=== PATIENT | male | born 1980 | race Caucasian/White ===

== ENCOUNTER 2023-04-04 08:04 | Emergency (ER) | payer MEDICAID ==
[~2023-04-04] VITALS: Ht 180.3 cm; Wt 115.2 kg
[2023-04-04 08:12] VITALS: BP 129/68; PULSE 100; RESP 18; TEMP 97.5; O2SAT 100
[2023-04-04] MEDS ORDERED: NACL 0.9% 1,000 ML IV ONE (08:40)
[2023-04-04] MEDS ORDERED: KETOROLAC 15 MG/ML VIAL IVP ONE (08:40)
[2023-04-04] MEDS ORDERED: ONDANSETRON 4 MG/2 ML VIAL IVP ONE (08:40)
[2023-04-04 08:54] LABS: BASOPHILS % (AUTO) 0.5 % (0.0-2.0); EOSINOPHILS % (AUTO) 0.1 % (0.0-4.0); HEMATOCRIT 47.7 % (36-52); HEMOGLOBIN 16.3 g/dL (12.0-18.0); LYMPHOCYTES # (AUTO) 0.9 K/uL (2.0-11.5); LYMPHOCYTES % (AUTO) 23.4 % (20.5-51.1); MEAN CORPUSCULAR HEMOGLOBIN 27 pg (27-31); MEAN CORPUSCULAR HGB CONC 34 g/dL (33-37); MEAN CORPUSCULAR VOLUME 80.1 fL (80-94); MONOCYTES # (AUTO) 0.6 K/uL (0.8-1.0); MONOCYTES % (AUTO) 14.6 % (1.7-9.3); NEUTROPHILS # (AUTO) 2.5 K/uL (1.8-7.7); NEUTROPHILS % (AUTO) 61.4 % (42.2-75.2); PLATELET COUNT (AUTO) 108 K/uL (140-450); RED BLOOD CELL COUNT(AUTO) 5.96 MIL/uL (4.20-6.10); RED CELL DISTRIBUTION WIDTH 13.5 % (11.6-13.7)
[2023-04-04] MEDS ORDERED: KETOROLAC 30 MG/ML VIAL ONE (08:56)
[2023-04-04 09:07] LABS: ALBUMIN 3.4 g/dL (3.4-5.0); ANION GAP 13.6 (8-16); CALCIUM 8.6 mg/dL (8.5-10.1); CARBON DIOXIDE 27.2 mmol/L (21-32); CREATININE 1.2 mg/dL (0.6-1.3); POTASSIUM 3.8 mmol/L (3.5-5.1); TOTAL BILIRUBIN 0.8 mg/dL (0.0-1.0); TOTAL PROTEIN, SERUM 7.8 g/dL (6.4-8.2)
[2023-04-04] MEDS ORDERED: IBUP-2213 PO (09:43)
[2023-04-04] MEDS ORDERED: ONDA-188 PO (09:43)
[2023-04-04] MEDS ORDERED: LOPE-289 PO (09:43)
== END 2023-04-04 10:02 | disposition home or self-care (01) ==
LOC: MED 08:04
DX: U07.1 COVID-19 (principal); R11.2 Nausea with vomiting, unspecified; R19.7 Diarrhea, unspecified; Z79.899 Other long term (current) drug therapy
CPT/HCPCS: 36415; 80053; 83690; 85025; 96361; 96374; 96375; 99284; J1885; J2405; J7030

== ENCOUNTER 2023-04-06 03:30 | Emergency (ER) | payer MEDICAID ==
[~2023-04-06] VITALS: Ht 180.3 cm; Wt 113.4 kg
[~2023-04-06 03:30] MED LIST: IBUP-2213 PO; LOPE-289 PO; ONDA-188 PO
[2023-04-06 03:46] VITALS: BP 124/84; PULSE 105; RESP 20; TEMP 98.2; O2SAT 93
[2023-04-06] MEDS ORDERED: KETOROLAC 30 MG/ML VIAL IM ONE (04:00)
[2023-04-06] MEDS ORDERED: ACETAMIN/CODEINE 120/12MG-5ML 5 ML UDC PO ONE (04:00)
[2023-04-06] MEDS ORDERED: ONDANSETRON 4 MG ODT PO ONE (04:10)
[2023-04-06 04:47] VITALS: O2SAT 96
[2023-04-06 05:00] LABS: APPEARANCE,URINE CLEAR (CLEAR); BILIRUBIN,URINE NEGATIVE (NEGATIVE); BLOOD, URINE 2+ (NEGATIVE); COLOR,URINE YELLOW (YELLOW); LEUKOCYTE ESTERASE ,URINE NEGATIVE (NEGATIVE); NITRITE, URINE NEGATIVE (NEGATIVE); PROTEIN,URINE 1+ (NEGATIVE); UGLUCOSE TRACE (NEGATIVE)
[2023-04-06 05:04] LABS: FLU A ANTIGEN negative (NEGATIVE); FLU B ANTIGEN NEGATIVE (NEGATIVE)
[2023-04-06 05:06] LABS: BACTERIA,URINE 10-30 (MOD) /HPF (None Seen); MUCUS,URINE 1+ /LPF (None Seen); SQUAMOUS EPITHELIAL CELL,UR 0-3 (FEW) /LPF (0-3 (FEW)); WBC,URINE 0-5 /HPF (0-5)
[2023-04-06 05:11] LABS: ANION GAP 11.6 (8-16); CALCIUM 8.4 mg/dL (8.5-10.1); CARBON DIOXIDE 27.7 mmol/L (21-32); CREATININE 1.1 mg/dL (0.6-1.3); POTASSIUM 3.3 mmol/L (3.5-5.1); TOTAL BILIRUBIN 0.9 mg/dL (0.0-1.0); TOTAL PROTEIN, SERUM 7.2 g/dL (6.4-8.2)
[2023-04-06] MEDS ORDERED: CEPH-588 PO (05:16)
[2023-04-06] MEDS ORDERED: NAPR-54 PO (05:16)
[2023-04-06] MEDS ORDERED: ACET-8905 PO (05:16)
[2023-04-06 05:20] LABS: BASOPHILS % (AUTO) 0.2 % (0.0-2.0); EOSINOPHILS % (AUTO) 0.2 % (0.0-4.0); HEMATOCRIT 43.9 % (36-52); HEMOGLOBIN 15.2 g/dL (12.0-18.0); LYMPHOCYTES # (AUTO) 1.2 K/uL (2.0-11.5); LYMPHOCYTES % (AUTO) 20.8 % (20.5-51.1); MEAN CORPUSCULAR HEMOGLOBIN 28 pg (27-31); MEAN CORPUSCULAR HGB CONC 35 g/dL (33-37); MEAN CORPUSCULAR VOLUME 79.7 fL (80-94); MONOCYTES # (AUTO) 0.5 K/uL (0.8-1.0); MONOCYTES % (AUTO) 9.6 % (1.7-9.3); NEUTROPHILS # (AUTO) 3.9 K/uL (1.8-7.7); NEUTROPHILS % (AUTO) 69.2 % (42.2-75.2); PLATELET COUNT (AUTO) 104 K/uL (140-450); RED BLOOD CELL COUNT(AUTO) 5.51 MIL/uL (4.20-6.10); RED CELL DISTRIBUTION WIDTH 13.1 % (11.6-13.7); WHITE BLOOD COUNT (AUTO) 5.6 K/uL (4.8-10.8)
[2023-04-06] MEDS ORDERED: NITR100C7 PO (05:39)
[2023-04-06] MEDS ORDERED: LEVOFLOXACIN 500 MG/D5W PREMIX 100 ML IV ONE (05:40)
[2023-04-06] MEDS ORDERED: NACL 0.9% 1,000 ML IV ONE (05:40)
[2023-04-06 07:22] VITALS: BP 120/79; PULSE 84; RESP 12; O2SAT 96
[2023-04-06] MEDS ORDERED: OMEP40EC23 PO (20:09)
[2023-04-06] MEDS ORDERED: METO-485 PO (20:09)
[2023-04-06] MEDS ORDERED: BENZ200C4 PO (20:32)
== END 2023-04-06 07:22 | disposition home or self-care (01) ==
LOC: MED 03:30
DX: N39.0 Urinary tract infection, site not specified (principal); Z20.822 Contact with and (suspected) exposure to COVID-19; R53.1 Weakness; Z79.899 Other long term (current) drug therapy
CPT/HCPCS: 36415; 71045; 80053; 81001; 85025; 87426; 87804; 96365; 96372; 99284; J1885; J1956; Q0092; Q0162

== ENCOUNTER 2023-04-06 14:17 | Emergency (ER) | payer MEDICAID ==
[~2023-04-06] VITALS: Ht 180.3 cm; Wt 115.7 kg
[~2023-04-06 14:17] MED LIST changes: +ACET-8905 PO; +CEPH-588 PO; +NAPR-54 PO; +NITR100C7 PO
[2023-04-06 14:51] VITALS: BP 112/88; PULSE 109; RESP 20; TEMP 97.7; O2SAT 100
[2023-04-06 16:35] LABS: BASOPHILS % (AUTO) 0.1 % (0.0-2.0); EOSINOPHILS % (AUTO) 0.2 % (0.0-4.0); HEMATOCRIT 45.6 % (36-52); HEMOGLOBIN 15.2 g/dL (12.0-18.0); LYMPHOCYTES # (AUTO) 0.9 K/uL (2.0-11.5); LYMPHOCYTES % (AUTO) 12.8 % (20.5-51.1); MEAN CORPUSCULAR HEMOGLOBIN 27 pg (27-31); MEAN CORPUSCULAR HGB CONC 33 g/dL (33-37); MEAN CORPUSCULAR VOLUME 80.6 fL (80-94); MONOCYTES # (AUTO) 0.7 K/uL (0.8-1.0); MONOCYTES % (AUTO) 10.2 % (1.7-9.3); NEUTROPHILS # (AUTO) 5.6 K/uL (1.8-7.7); NEUTROPHILS % (AUTO) 76.7 % (42.2-75.2); PLATELET COUNT (AUTO) 115 K/uL (140-450); RED BLOOD CELL COUNT(AUTO) 5.66 MIL/uL (4.20-6.10); RED CELL DISTRIBUTION WIDTH 13.3 % (11.6-13.7); WHITE BLOOD COUNT (AUTO) 7.3 K/uL (4.8-10.8)
[2023-04-06 16:49] LABS: ALBUMIN 3.1 g/dL (3.4-5.0); ANION GAP 11.1 (8-16); CALCIUM 8.6 mg/dL (8.5-10.1); CARBON DIOXIDE 29.5 mmol/L (21-32); CREATININE 1.1 mg/dL (0.6-1.3); POTASSIUM 3.6 mmol/L (3.5-5.1); TOTAL BILIRUBIN 1.1 mg/dL (0.0-1.0); TOTAL PROTEIN, SERUM 7.5 g/dL (6.4-8.2)
[2023-04-06] MEDS ORDERED: ONDANSETRON 4 MG/2 ML VIAL IVP ONE ×2 (17:30→19:45)
[2023-04-06] MEDS ORDERED: ALUMINUM HYD/MAG/SIMETHICONE 30 ML UDC PO ONE ×2 (17:30→20:05)
[2023-04-06] MEDS ORDERED: KETOROLAC 15 MG/ML VIAL IVP ONE ×2 (17:30→19:40)
[2023-04-06] MEDS ORDERED: NACL 0.9% 1,000 ML IV ONE ×2 (17:30→19:45)
[2023-04-06] MEDS ORDERED: FAMOTIDINE 20 MG/2 ML VIAL IVP ONE (17:30)
[2023-04-06] MEDS ORDERED: ALUMINUM HYD/MAG/SIMETHICONE 30 ML UDC PO PRN (19:45)
[2023-04-06] MEDS ORDERED: FAMOTIDINE 20 MG/2 ML VIAL IVP SCH (19:45)
[2023-04-06] MEDS ORDERED: METO-485 PO (20:09)
[2023-04-06] MEDS ORDERED: OMEP40EC23 PO (20:09)
[2023-04-06 20:30] VITALS: BP 113/86; PULSE 99; RESP 20; TEMP 97.7; O2SAT 100
[2023-04-06] MEDS ORDERED: BENZ200C4 PO (20:32)
== END 2023-04-06 20:30 | disposition home or self-care (01) ==
LOC: MED 14:17
DX: R10.13 Epigastric pain (principal); R11.2 Nausea with vomiting, unspecified; Z88.0 Allergy status to penicillin; Z79.899 Other long term (current) drug therapy
CPT/HCPCS: 36415; 71045; 76705; 80053; 83690; 84484; 85025; 93005; 96361; 96374; 96375; 99285; J1885; J2405; J3490